=== PATIENT | female | born 1995 | race Caucasian/White ===

== ENCOUNTER 2019-04-10 10:28 | Inpatient (IN) | payer BC ==
[~2019-04-10] VITALS: Ht 154.9 cm; Wt 65.9 kg
[2019-04-10 10:56] VITALS: BP 134/94
[2019-04-10] MEDS ORDERED: IV NORMAL SALINE 1,000ML 1,000 ML IV SCH (11:30)
[2019-04-10] MEDS ORDERED: ACETAMINOPHEN 325 MG TABLET PO PRN (11:30)
[2019-04-10] MEDS ORDERED: AZITHROMYCIN 500 MG in IV NORMAL SALINE 250ML 250 ML IV SCH (14:00)
--- NOTE | 2019-04-10 14:40 | RAD ---
EXAM: Chest, 2 views. HISTORY: Pneumonia. COMPARISON: None. FINDINGS: 2 views of the chest are obtained. There is partially consolidated right upper lobe pneumonia. There is no pleural effusion or pneumothorax. The heart is normal in size. There is gaseous distention of the stomach. IMPRESSION: Partially consolidated right upper lobe pneumonia. Follow-up to confirm resolution. Electronically signed by: Magdalena Prather MD (04/10/2019 2:37 PM) [place] [id number]
[2019-04-10 15:10] VITALS: BP 117/74
[2019-04-10 15:13] LABS: BASO % 1 % (0-3); EOS # 0.1 x10^3/uL (0.0-0.7); EOS % 1 % (0-3); HEMATOCRIT 34.6 % (36.0-47.0); HEMOGLOBIN 11.4 g/dL (12.0-15.5); LYMPH # 0.8 x10^3/uL (1.0-4.8); LYMPH % 11 % (24-48); MEAN CORPUSCULAR HEMOGLOBIN 26 pg (25-35); MEAN CORPUSCULAR HGB CONC 33 g/dL (31-37); MEAN CORPUSCULAR VOLUME 80 fL (79-100); MONO # 0.8 x10^3/uL (0.0-1.1); MONO % 10 % (0-9); NEUT # 5.8 x10^3uL (1.8-7.7); NEUT % 77 % (31-73); PLATELET COUNT 350 x10^3/uL (140-400); RED BLOOD COUNT 4.34 x10^6/uL (3.50-5.40); RED CELL DISTRIBUTION WIDTH 13.3 % (11.5-14.5); WHITE BLOOD COUNT 7.5 x10^3/uL (4.0-11.0)
[2019-04-10 15:16] LABS: U PREG PATIENT NEGATIVE (NEG)
[2019-04-10 15:21] LABS: BACTERIA,URINE 0 /HPF (0-FEW); BILIRUBIN,URINE NEG (NEG); CLARITY,URINE CLEAR; COLOR,URINE STRAW; GLUCOSE,URINE NEG (NEG); NITRITE,URINE NEG (NEG); RBC,URINE 0 /HPF (0-2); SQUAMOUS EPITHELIAL CELL,UR OCC /LPF; UROBILINOGEN,URINE 0.2 mg/dL (0.2 mg/dL); WBC,URINE OCC /HPF (0-4)
[2019-04-10] MEDS ORDERED: diphenhydrAMINE HCL 25 MG CAPSULE PO PRN ×2 (15:30→18:15)
[2019-04-10 15:40] LABS: ALBUMIN/GLOBULIN RATIO 0.6 (1.0-1.7); CALCIUM 8.6 mg/dL (8.5-10.1); CREATININE 0.8 mg/dL (0.6-1.0); GFR 89.7; POTASSIUM 3.8 mmol/L (3.5-5.1); TOTAL BILIRUBIN 0.2 mg/dL (0.2-1.0); TOTAL PROTEIN 7.9 g/dL (6.4-8.2)
[2019-04-10] MEDS ORDERED: DOXYCYCLINE HYCLATE 100 MG TABLET PO SCH (16:00)
[2019-04-10] MEDS ORDERED: ZOLPIDEM 5 MG TABLET. PO PRN (18:15)
[2019-04-10] MEDS ORDERED: CONTRAST GIVEN MC PRN (18:15)
[2019-04-10] MEDS ORDERED: IOHEXOL 350 MG/ML 100 ML VIAL. IV ONE (18:15)
[2019-04-10] MEDS: ACETAMINOPHEN 500 MG TABLET PO PRN (19:28)
[2019-04-10] MEDS: LACTOBACILLUS RHAMNOSUS GG 1 CAPSULE. PO SCH (19:28)
[2019-04-10] MEDS: guaiFENesin DM 200MG/20MG 10 ML SYRUP PO PRN (19:28)
[2019-04-10 19:38] VITALS: BP 144/97
[2019-04-10] MEDS: IPRATRPIUM/ALBUTEROL 0.5/2.5MG 3 ML NEBU. NEB SCH (21:48)
[2019-04-10 22:23] VITALS: BP 136/88
[2019-04-10 22:50] LABS: INFLUENZA A PATIENT NEGATIVE (NEGATIVE); INFLUENZA B PATIENT NEGATIVE (NEGATIVE)
[2019-04-11] MEDS: guaiFENesin DM 200MG/20MG 10 ML SYRUP PO PRN ×2 (00:26→23:54)
--- NOTE | 2019-04-11 01:21 | RAD ---
Exam: CT of chest with contrast INDICATION: Elevated d-dimer, pneumonia TECHNIQUE: Sequential axial images through the chest obtained following the administration of 90 mL of Omni 350 IV contrast. Sagittal and coronal reformatted images were reconstructed from the axial data and reviewed. 3-D reformatted images were reconstructed from the axial data and reviewed. Comparisons: Chest x-ray same day FINDINGS: Visualized portions of the thyroid are unremarkable. No enlarged mediastinal lymph nodes are identified. Heart size is normal. No pericardial effusion. Thoracic aorta has a normal course and caliber. Pulmonary artery is not enlarged. No pulmonary embolus identified within the main, lobar or segmental pulmonary arteries. Airways are patent. There is consolidative changes in the right upper lobe. Patchy tree-in-bud nodularity in the superior segment of the right lower lobe. Remaining lungs are clear. No pleural effusion or thickening. Visualized upper abdomen is unremarkable. No suspicious osseous lesions or acute fractures. IMPRESSION: 1. No pulmonary embolus identified within the main, lobar or segmental pulmonary arteries. 2. Consolidation in the right upper lobe with tree-in-bud nodularity in the left upper lobe favored to be infectious in etiology. Radiographic follow-up posttreatment to ensure resolution is recommended. Exposure: One or more of the following in the visualized dose reduction techniques were utilized for this examination: 1. Automated exposure control 2. Adjustment of the MA and/or KV according to patient size 3. Use of iterative of reconstructive technique Electronically signed by: Teresa Wiley MD (04/11/2019 1:18 AM) [facility]
[2019-04-11] MEDS: ACETAMINOPHEN 500 MG TABLET PO PRN ×3 (02:57→20:32)
[2019-04-11] MEDS: IPRATRPIUM/ALBUTEROL 0.5/2.5MG 3 ML NEBU. NEB SCH ×3 (05:28→15:41)
[2019-04-11 05:47] VITALS: BP 116/81
[2019-04-11] MEDS: LACTOBACILLUS RHAMNOSUS GG 1 CAPSULE. PO SCH ×2 (08:32→20:33)
[2019-04-11] MEDS: IV NORMAL SALINE 1,000ML 1,000 ML IV SCH ×3 (08:32→20:50)
[2019-04-11 11:00] VITALS: BP 124/87
--- NOTE | 2019-04-11 11:14 | PN ---
DATE: SUBJECTIVE: The patient was admitted yesterday with right upper lobe pneumonia, probable atypical pneumonia. A 23-year-old female, making good progress, feels somewhat better today. OBJECTIVE: VITAL SIGNS: Temperature has come down from 100.5 with pulse of 120, down to 98.2 with pulse 100, blood pressure 116/81, respiratory rate 18, oxygen saturation good. GENERAL: The patient is alert, certainly more stable. The patient is alert and oriented. LUNGS: Diminished, primarily in the right upper lobe. CARDIOVASCULAR: Regular sinus rhythm, tachycardic. ABDOMEN: Soft, nontender. EXTREMITIES: No rashes or joint pain. The patient is ambulatory. The patient otherwise is resting fairly comfortably, receiving breathing treatments as well as that of IV Levaquin and Rocephin and continues to be monitored on that. IMPRESSION: Atypical pneumonia, right upper lobe mass. PLAN: Continue with IV antibiotic therapy and make further evaluation on her as indicated. ALESHA RICHMOND MD DR: SHEILA/raya JOB#: [id number] / [id number]
[2019-04-11 15:08] VITALS: BP 121/82
[2019-04-11 19:00] VITALS: BP 126/86
[2019-04-12 01:00] VITALS: BP 136/93
[2019-04-12] MEDS: IV NORMAL SALINE 1,000ML 1,000 ML IV SCH ×3 (03:26→16:50)
[2019-04-12] MEDS: ACETAMINOPHEN 500 MG TABLET PO PRN ×2 (05:14→14:23)
[2019-04-12] MEDS: IPRATRPIUM/ALBUTEROL 0.5/2.5MG 3 ML NEBU. NEB SCH ×2 (05:33→11:10)
[2019-04-12 06:27] VITALS: BP 130/84
[2019-04-12 07:51] LABS: BASO % 0 % (0-3); EOS # 0.2 x10^3/uL (0.0-0.7); EOS % 2 % (0-3); HEMATOCRIT 34.1 % (36.0-47.0); HEMOGLOBIN 11.3 g/dL (12.0-15.5); LYMPH # 1.2 x10^3/uL (1.0-4.8); LYMPH % 11 % (24-48); MEAN CORPUSCULAR HEMOGLOBIN 26 pg (25-35); MEAN CORPUSCULAR HGB CONC 33 g/dL (31-37); MEAN CORPUSCULAR VOLUME 78 fL (79-100); MONO # 0.6 x10^3/uL (0.0-1.1); MONO % 5 % (0-9); NEUT # 9.6 x10^3uL (1.8-7.7); NEUT % 82 % (31-73); PLATELET COUNT 406 x10^3/uL (140-400); RED BLOOD COUNT 4.35 x10^6/uL (3.50-5.40); RED CELL DISTRIBUTION WIDTH 13.2 % (11.5-14.5); WHITE BLOOD COUNT 11.7 x10^3/uL (4.0-11.0)
[2019-04-12] MEDS: LACTOBACILLUS RHAMNOSUS GG 1 CAPSULE. PO SCH (08:08)
[2019-04-12 08:09] LABS: ALBUMIN 2.7 g/dL (3.4-5.0); ALBUMIN/GLOBULIN RATIO 0.6 (1.0-1.7); CALCIUM 8.8 mg/dL (8.5-10.1); CREATININE 0.6 mg/dL (0.6-1.0); POTASSIUM 3.6 mmol/L (3.5-5.1); TOTAL BILIRUBIN 0.2 mg/dL (0.2-1.0); TOTAL PROTEIN 7.1 g/dL (6.4-8.2)
[2019-04-12 10:07] VITALS: BP 125/85
[2019-04-12 10:36] LABS: % BANDS 2 % (0-9); % EOS 2 % (0-5); % LYMPHS 8 % (24-48); % MONOS 8 % (0-10); % SEGS 80 % (35-66); PLT ESTIMATE INCREASED (ADEQUATE)
[2019-04-12 10:37] LABS: MICROCYTOSIS SLIGHT; TOXIC GRANULATION SLIGHT
--- NOTE | 2019-04-12 11:07 | RAD ---
Chest, PA and Lateral: Technique: PA and lateral views of the chest were obtained. History: Pneumonia. Comparison: 04/10/2019. Findings: The heart size is grossly unremarkable. Moderate consolidation identified in the right upper lobe of the lung identified likely pneumonia. IMPRESSION: Moderate consolidation right upper lobe of the lung likely pneumonia again identified. Follow-up to resolution. Electronically signed by: Zi Jimenez MD (04/12/2019 11:04 AM) [facility]
[2019-04-12] MEDS ORDERED: LEVO500T59 PO (15:12)
[2019-04-12 15:22] VITALS: BP 123/83
--- NOTE | 2019-04-12 17:47 | DS ---
DATE OF DISCHARGE: HOSPITAL COURSE: She is a pleasant 23-year-old female came in with a nonproductive cough for a couple of weeks. It was found on x-ray to have a large right upper lobe consolidation and PCR demonstrated the patient to have a mycoplasma infection, tried her on Zithromax. She had an intolerance to the Zithromax as well as the doxycycline, switched over to Levaquin and Rocephin and seems to have made a good progress with that. She was breathing much better at the time of discharge. She was feeling much better. She does have a nebulizer at home. She was placed on some DuoNeb and Levaquin by mouth, take an extra week off from work and of course will need to repeat a chest x-ray in time to make sure that it does clear up. Last blood pressure 125/85, respiratory rate 20, pulse 98. She has been afebrile for the last 2 days. Eating and drinking just feels tired and needed to get additional rest. Gave her my phone number in case anything should happen. IMPRESSION: Therefore, mycoplasma pneumoniae, bronchospasm. The patient returned here in the next 3-4 days for followup or sooner as needed. ALESHA RICHMOND MD DR: SHEILA/raya JOB#: [id number] / [id number]
== END 2019-04-12 16:59 | disposition home or self-care (01) | DRG 195 ==
LOC: 1 SOUTH 10:28
PROVIDERS: ADMIT Family Medicine; ATTEND Family Medicine
DX: J18.9 Pneumonia, unspecified organism (principal); J98.01 Acute bronchospasm; B96.0 Mycoplasma pneumoniae [M. pneumoniae] as the cause of diseases classified elsewhere
CPT/HCPCS: 36415; 71046; 71275; 80053; 81001; 81025; 83605; 85007; 85025; 85379; 87040; 87804; 94640; J0456; J0696; J1956; J7050; J7620; Q0163; Q9967; J7030